=== PATIENT | male | born 1965 | race Caucasian/White ===

== ENCOUNTER 2019-01-26 10:39 | Emergency (ER) | payer OTHER ==
[~2019-01-26] VITALS: Ht 172.7 cm; Wt 59.0 kg
[2019-01-26 10:57] VITALS: BP 145/93
[2019-01-26 10:57] LABS: URINE BILIRUBIN NEGATIVE (Negative); URINE BLOOD NEGATIVE (Negative); URINE CLARITY CLEAR; URINE COLOR YELLOW; URINE GLUCOSE-RANDOM NEGATIVE (Negative); URINE KETONES NEGATIVE (Negative); URINE LEUKOCYTES-REFLEX NEGATIVE (Negative); URINE NITRITE-REFLEX NEGATIVE (Negative); URINE PROTEIN 1+ (Negative); URINE SPECIFIC GRAVITY 1.015 (1.005-1.030); URINE UROBILINOGEN 0.2 E.U./dl (0.2-1.0)
== END 2019-01-26 12:50 | disposition home or self-care (01) ==
LOC: M.ERS 10:39
PROVIDERS: Physician Assistant
DX: A59.9 Trichomoniasis, unspecified (principal); R39.11 Hesitancy of micturition; F17.210 Nicotine dependence, cigarettes, uncomplicated